=== PATIENT | female | born 1950 | race Caucasian/White ===

== ENCOUNTER 2018-07-02 11:59 | Emergency (ER) | payer OTHER, BC ==
[~2018-07-02] VITALS: Ht 157.5 cm; Wt 45.4 kg
[~2018-07-02 11:59] MED LIST: ADVAIR 100-501 EACH INH; ALBUTEROL2.5 MG/31 INH; ALEVE220 MG PO; APAP/CODEINE ELI5 M1 OR; APAP500; ASPIR 8181 M1 PO; ATIVAN0.5 MG PO; BACTRIM DS TAB1 EACH PO; BENTYL10 MG PO; CLONAZEPAM 1 MG1 M1 PO; DICYCLOMINE HCL10 MG; DOXYCYCLINE 10100 MG PO; DUONEB 2.5-0.5 M3 ML INH; HYDROCODONE-APA1 TA1 PO; LEXAPRO20 MG PO; MACRODANTIN100 MG PO; NEURONTIN 300M300 M2 PO; NEURONTIN 400400 M1 PO; NEURONTIN 400M400 M2 PO; NICOTINE TRANSD14 M1 TRANSDERM; NORCO 5-325 TA1 EACH PO; PANTOPRAZOLE SO40 M1 PO; PHENERGAN 25 MG25 M1 PO; PREDNISONE 10 M10 M1 PO; PREDNISONE 20 M20 MG PO; PROMETHAZINE-C120 ML PO; PROMETHAZINE/C118 ML PO; PROVENTIL HFA6.7 G1 INH; SIMVASTATIN40 MG PO; SPIRIVA INH; TRAMADOL 50 MG50 MG PO; TRAZODONE HCL100 MG PO; TRAZODONE HCL50 MG PO; TRAZODONE PO; TYLENOL325 MG PO; ULTRA-LIGHT RO1 EACH MC; VENLAFAXIN75 MG/1 T2; VENLAFAXIN75 MG/1 T2 PO; ZANAFLEX4 MG PO; ZOFRAN ODT4 MG PO; ZPAK PO
[2018-07-02 12:00] VITALS: BP 135/86
[2018-07-02] MEDS ORDERED: HYDROCODONE-AP1 EAC6 PO (13:00)
[2018-07-02] MEDS ORDERED: NAPROSYN500 MG PO (13:00)
== END 2018-07-02 13:00 | disposition home or self-care (01) ==
LOC: ER 11:59
DX: S46.812A Strain of other muscles, fascia and tendons at shoulder and upper arm level, left arm, initial encounter (principal); F17.210 Nicotine dependence, cigarettes, uncomplicated; Z88.6 Allergy status to analgesic agent; F41.9 Anxiety disorder, unspecified; F32.9 Major depressive disorder, single episode, unspecified; J44.9 Chronic obstructive pulmonary disease, unspecified; Z90.49 Acquired absence of other specified parts of digestive tract; Z86.73 Personal history of transient ischemic attack (TIA), and cerebral infarction without residual deficits; W00.0XXA Fall on same level due to ice and snow, initial encounter; Y92.89 Other specified places as the place of occurrence of the external cause; Y93.01 Activity, walking, marching and hiking; Y99.8 Other external cause status

== ENCOUNTER → 2019-07-24 | Outpatient (CLI) | payer OTHER ==
[~2019-07-24] MED LIST changes: +HYDROCODONE-AP1 EAC6 PO; +NAPROSYN500 MG PO
== END ==
LOC: MRI 07:43
DX: R90.82 White matter disease, unspecified (principal); R91.1 Solitary pulmonary nodule